=== PATIENT | male | born 1965 | race African-American/Black ===

== ENCOUNTER 2017-01-17 17:25 | Inpatient (IN) | payer OTHER ==
[~2017-01-17] VITALS: Ht 193 cm; Wt 95.8 kg
[~2017-01-17 17:25] MED LIST: ALDACTONE12.5 MG PO; ALDACTONE50 MG PO; ALER-CAP25 M1 PO; AMBIEN10 MG PO; AMLODIPINE; AMLODIPINE BESY10 MG PO; ANALGESIC325 MG PO; ASACOL HD800 MG PO; ASACOL400 MG PO; ASCORBIC ACID500 M3 PO; AUGMENTIN875 MG PO; AVENTYL,PAMELOR25 MG PO; Aldactone PO; Ativan PO; BENICAR20 MG PO; BENTYL10 MG PO; BENTYL20 MG PO; CLEOCIN300 MG PO; CLOZAPINE200 MG PO; COLCHICINE,COL0.6 MG PO; CYCLOBENZAPRINE10 MG PO; DAILY VALUE1 EACH PO; DELTASONE20 M1 PO; DIAZEPAM10 MG PO; DICLOFENAC SODI75 MG PO; DICYCLOMINE HCL MC; DICYCLOMINE HCL10 MG PO; DILAUDID2 MG PO; DILAUDID4 MG PO; DURAGESIC100 MCG TD; EFFEXOR XR150 MG PO; EFFEXOR37.5 MG PO; FERROUS SULFAT325 MG PO; FLEXERIL; FLEXERIL10 MG PO; FLEXERIL5 MG PO; GABAPENTIN300 MG PO; GABAPENTIN400 MG PO; HABITROL,NICODE21 MG TD; HYDROMORPHONE HC4 MG PO; HYDROXYZINE HCL10 MG PO; INDOMETHACIN50 MG PO; IRON325 MG PO; KEFLEX500 MG PO; KEPPRA250 MG PO; Kenalog,Aristocort 0 TP; LYRICA100 MG; LYRICA100 MG PO; LYRICA150 MG PO; LYRICA200 MG PO; LYRICA50 MG PO; LYRICA75 MG PO; MELOXICAM15 MG PO; METHADONE10 MG PO; MORPHINE SULFAT15 M1; MORPHINE SULFAT15 MG PO; MORPHINE SULFAT60 MG; MORPHINE SULFAT60 MG PO; MOTRIN400 MG PO; MS CONTIN,ORAMO60 MG PO; NAPROXEN500 MG PO; NEURONTIN300 MG PO; NICODERM CQ1 EAC2 TD; NICOTINE PATCH1 EAC2 TD; NORVASC10 MG PO; NORVASC5 MG PO; OMEPRAZOLE20 M1 PO; OMEPRAZOLE20 MG PO; OXAYDO5 MG PO; OXYCONTIN20 MG PO; OXYCONTIN30 MG PO; PAMELOR; PERCOCET 5/31 TABLET PO; PRILOSEC20 MG PO; PRILOSEC40 MG PO; PROTONIX40 MG PO; ROBAXIN500 MG PO; SENOKOT S,PE1 TABLET PO; SEROQUEL100 MG PO; SEROQUEL50 MG PO; SKELAXIN800 MG PO; SUBOXONE 12 MG1 EACH SL; TRAMADOL HCL50 MG PO; Tylenol Regular Stre PO; ULTRAM50 MG PO; VALIUM10 MG PO; VENLAFAXINE HC150 M1 PO; VICODIN,LORT1 TABLET PO; VOLTAREN75 MG PO; Vicodin,Lortab 5/500 PO; ZANAFLEX2 M1 PO; ZANAFLEX2 MG PO; ZOLPIDEM TARTRA10 MG PO; ZYVOX600 MG PO
[2017-01-17 19:32] LABS: EOSINOPHIL (%) 0.9 % (0-5); EOSINOPHIL COUNT 0.1 K/uL (0-0.3); HEMATOCRIT 37.3 % (38.0-50.0); IMMATURE GRANULOCYTE (%) 0.1 % (0.0-0.7); INSTRUMENT ABS NEUTROPHIL CT 3.2 K/uL; LYMPHOCYTE COUNT 2.9 K/uL (1.0-2.8); MCH 26.8 PG (29.0-34.0); MCV 81.3 FL (86-99); MONOCYTE (%) 8.4 % (3-12); MONOCYTE COUNT 0.6 K/uL (0-0.8); NEUTROPHIL (%) 47.2 % (45-76); NEUTROPHIL COUNT 3.2 K/uL (1.8-6.4); PLATELET COUNT 134 K/uL (156-360); RBC DIS.WIDTH-CV 17.4 % (11.8-14.6); RBC DIS.WIDTH-SD 50.4 % (39-53); RED BLOOD COUNT 4.59 M/uL (4.00-5.50); WHITE BLOOD COUNT 6.8 K/uL (4.1-10.2)
[2017-01-17 19:40] LABS: CHLORIDE 112 mEq/L (99-109); POTASSIUM 3.6 mEq/L (3.7-5.4); SODIUM 141 mEq/L (136-147)
[2017-01-17 19:42] LABS: GLUCOSE 81 mg/dL (70-99)
[2017-01-17 19:43] LABS: ANION GAP 7 MEQ/L (2-14)
[2017-01-17 19:45] LABS: GFR ESTIMATE (CALCULATED) > 59 mL/min/; SERUM ETHYL ALCOHOL 162 mg/dL
[2017-01-17 19:46] LABS: UREA NITROGEN (BUN) 7 mg/dL (9-23)
[2017-01-17] MEDS ORDERED: LYRICA100 MG PO (20:41)
[2017-01-17] MEDS ORDERED: SEROQUEL100 MG PO (20:42)
[2017-01-17] MEDS ORDERED: MAGNESIUM400 M1 PO (20:43)
[2017-01-17] MEDS ORDERED: SEROQUEL50 MG PO (20:43)
[2017-01-17] MEDS ORDERED: OXAYDO5 MG PO (20:44)
[2017-01-17] MEDS ORDERED: DELTASONE20 M1 PO (20:44)
[2017-01-17] MEDS ORDERED: ERGOCALCIF50000 UNIT PO (20:45)
[2017-01-17] MEDS ORDERED: OMEPRAZOLE20 MG PO (20:45)
[2017-01-17] MEDS ORDERED: TRAZODONE HCL50 MG PO (20:46)
[2017-01-17] MEDS ORDERED: LIDODERM 5% P1 PATCH TD (20:46)
[2017-01-17 21:08] VITALS: BP 159/91
[2017-01-17 23:49] VITALS: BP 118/61
[2017-01-18 03:50] VITALS: BP 136/85
[2017-01-18 08:13] VITALS: BP 138/83
[2017-01-18 08:48] LABS: METH RESISTANT S AUREUS PCR POSITIVE (NEGATIVE)
[2017-01-18 08:51] LABS: PROBE CHECK PASS
[2017-01-18 16:13] VITALS: BP 154/88
[2017-01-18 20:14] VITALS: BP 155/86
[2017-01-19] VITALS (7 sets, daily range): BP systolic 128–150; BP diastolic 60–92
[2017-01-19 08:07] LABS: EOSINOPHIL (%) 2.3 % (0-5); EOSINOPHIL COUNT 0.1 K/uL (0-0.3); HEMATOCRIT 32.5 % (38.0-50.0); IMMATURE GRANULOCYTE (%) 0.2 % (0.0-0.7); INSTRUMENT ABS NEUTROPHIL CT 1.9 K/uL; LYMPHOCYTE COUNT 2.5 K/uL (1.0-2.8); MCHC 32.6 G/DL (30.0-36.0); MCV 82.7 FL (86-99); MONOCYTE (%) 12.8 % (3-12); MONOCYTE COUNT 0.7 K/uL (0-0.8); NEUTROPHIL (%) 36.8 % (45-76); NEUTROPHIL COUNT 1.9 K/uL (1.8-6.4); RBC DIS.WIDTH-CV 17.3 % (11.8-14.6); RBC DIS.WIDTH-SD 52.9 % (39-53); RED BLOOD COUNT 3.93 M/uL (4.00-5.50); WHITE BLOOD COUNT 5.2 K/uL (4.1-10.2)
[2017-01-19 08:21] LABS: ANION GAP 5 MEQ/L (2-14); CHLORIDE 109 MEQ/L (99-109); GFR ESTIMATE (CALCULATED) > 59 mL/min/; GLUCOSE 88 mg/dL (70-99); POTASSIUM 4.3 MEQ/L (3.7-5.4); SAMPLE HEMOLYSIS CHECK 0; SAMPLE ICTERIC CHECK 0; SAMPLE LIPEMIA CHECK 0; SODIUM 138 MEQ/L (136-147); UREA NITROGEN (BUN) 11 mg/dL (9-23)
[2017-01-19 09:32] LABS: PLAT.SUFFICIENCY DECREASED; PLATELET COUNT 98 K/uL (156-360)
[2017-01-20] VITALS (19 sets, daily range): BP systolic 85–168; BP diastolic 65–99
[2017-01-20 05:40] LABS: ANION GAP 5 MEQ/L (2-14); CHLORIDE 106 MEQ/L (99-109); GFR ESTIMATE (CALCULATED) > 59 mL/min/; GLUCOSE 91 mg/dL (70-99); POTASSIUM 4.2 MEQ/L (3.7-5.4); SAMPLE HEMOLYSIS CHECK 0; SAMPLE ICTERIC CHECK 0; SAMPLE LIPEMIA CHECK 0; SODIUM 137 MEQ/L (136-147); UREA NITROGEN (BUN) 14 mg/dL (9-23)
[2017-01-20 06:55] LABS: EOSINOPHIL (%) 2.4 % (0-5); EOSINOPHIL COUNT 0.1 K/uL (0-0.3); HEMATOCRIT 30.5 % (38.0-50.0); IMMATURE GRANULOCYTE (%) 0.4 % (0.0-0.7); INSTRUMENT ABS NEUTROPHIL CT 2.3 K/uL; LYMPHOCYTE COUNT 2.2 K/uL (1.0-2.8); MCH 26.8 PG (29.0-34.0); MCHC 32.5 G/DL (30.0-36.0); MCV 82.4 FL (86-99); MONOCYTE (%) 13.6 % (3-12); MONOCYTE COUNT 0.7 K/uL (0-0.8); NEUTROPHIL (%) 42.9 % (45-76); NEUTROPHIL COUNT 2.3 K/uL (1.8-6.4); PLATELET COUNT 96 K/uL (156-360); RBC DIS.WIDTH-CV 17.2 % (11.8-14.6); RBC DIS.WIDTH-SD 51.2 % (39-53); WHITE BLOOD COUNT 5.4 K/uL (4.1-10.2)
[2017-01-21] VITALS (14 sets, daily range): BP systolic 115–174; BP diastolic 56–96
[2017-01-22 04:04] VITALS: BP 134/86
[2017-01-22 06:48] LABS: ANION GAP 7 MEQ/L (2-14); CHLORIDE 102 MEQ/L (99-109); GFR ESTIMATE (CALCULATED) > 59 mL/min/; GLUCOSE 100 mg/dL (70-99); POTASSIUM 4.1 MEQ/L (3.7-5.4); SAMPLE HEMOLYSIS CHECK 0; SAMPLE ICTERIC CHECK 0; SAMPLE LIPEMIA CHECK 0; SODIUM 136 MEQ/L (136-147); UREA NITROGEN (BUN) 12 mg/dL (9-23)
[2017-01-22 07:00] LABS: EOSINOPHIL (%) 0.8 % (0-5); EOSINOPHIL COUNT 0.1 K/uL (0-0.3); IMMATURE GRANULOCYTE (%) 0.4 % (0.0-0.7); IMMATURE GRANULOCYTE COUNT 0.1 K/uL; LYMPHOCYTE COUNT 3.2 K/uL (1.0-2.8); MCH 27.1 PG (29.0-34.0); MCHC 32.8 G/DL (30.0-36.0); MCV 82.5 FL (86-99); MONOCYTE (%) 12.5 % (3-12); MONOCYTE COUNT 1.5 K/uL (0-0.8); NEUTROPHIL (%) 59.1 % (45-76); RBC DIS.WIDTH-CV 17.7 % (11.8-14.6); RBC DIS.WIDTH-SD 51.8 % (39-53); RED BLOOD COUNT 3.88 M/uL (4.00-5.50)
[2017-01-22 07:14] LABS: WHITE BLOOD COUNT 11.9 K/uL (4.1-10.2)
[2017-01-22 07:53] VITALS: BP 159/88
[2017-01-22 08:04] LABS: PLAT.SUFFICIENCY DECREASED; PLATELET COUNT 96 K/uL (156-360)
[2017-01-22 11:19] VITALS: BP 143/85
[2017-01-22 14:48] VITALS: BP 146/84
[2017-01-22 20:00] VITALS: BP 158/88
[2017-01-23] VITALS (7 sets, daily range): BP systolic 119–152; BP diastolic 71–83
[2017-01-23 06:13] LABS: ANION GAP 7 MEQ/L (2-14); CHLORIDE 99 MEQ/L (99-109); GFR ESTIMATE (CALCULATED) > 59 mL/min/; GLUCOSE 143 mg/dL (70-99); POTASSIUM 4.2 MEQ/L (3.7-5.4); SAMPLE HEMOLYSIS CHECK 0; SAMPLE ICTERIC CHECK 0; SAMPLE LIPEMIA CHECK 0; SODIUM 132 MEQ/L (136-147); UREA NITROGEN (BUN) 11 mg/dL (9-23)
[2017-01-23 06:26] LABS: VANCOMYCIN, TROUGH 21.1 MCG/ML (10-20)
[2017-01-23 06:36] LABS: EOSINOPHIL (%) 1.6 % (0-5); EOSINOPHIL COUNT 0.2 K/uL (0-0.3); HEMATOCRIT 31.2 % (38.0-50.0); IMMATURE GRANULOCYTE (%) 0.4 % (0.0-0.7); INSTRUMENT ABS NEUTROPHIL CT 5.2 K/uL; LYMPHOCYTE COUNT 3.2 K/uL (1.0-2.8); MCH 26.9 PG (29.0-34.0); MCHC 32.4 G/DL (30.0-36.0); MONOCYTE (%) 14.8 % (3-12); MONOCYTE COUNT 1.5 K/uL (0-0.8); NEUTROPHIL (%) 51.1 % (45-76); NEUTROPHIL COUNT 5.2 K/uL (1.8-6.4); PLATELET COUNT 97 K/uL (156-360); RBC DIS.WIDTH-CV 17.3 % (11.8-14.6); RBC DIS.WIDTH-SD 52.5 % (39-53); RED BLOOD COUNT 3.76 M/uL (4.00-5.50); WHITE BLOOD COUNT 10.1 K/uL (4.1-10.2)
[2017-01-24 03:35] VITALS: BP 122/78
[2017-01-24 08:23] VITALS: BP 140/78
[2017-01-24 11:11] VITALS: BP 134/77
[2017-01-24 15:59] VITALS: BP 137/86
[2017-01-24 19:20] VITALS: BP 136/84
[2017-01-24 23:19] VITALS: BP 135/71
[2017-01-25 03:51] VITALS: BP 144/76
[2017-01-25 05:53] LABS: ANION GAP 7 MEQ/L (2-14); CHLORIDE 100 MEQ/L (99-109); GFR ESTIMATE (CALCULATED) > 59 mL/min/; GLUCOSE 111 mg/dL (70-99); POTASSIUM 4.3 MEQ/L (3.7-5.4); SAMPLE HEMOLYSIS CHECK 0; SAMPLE ICTERIC CHECK 0; SAMPLE LIPEMIA CHECK 0; SODIUM 134 MEQ/L (136-147); UREA NITROGEN (BUN) 10 mg/dL (9-23)
[2017-01-25 06:29] LABS: EOSINOPHIL (%) 2.8 % (0-5); EOSINOPHIL COUNT 0.2 K/uL (0-0.3); HEMATOCRIT 33.9 % (38.0-50.0); IMMATURE GRANULOCYTE (%) 0.7 % (0.0-0.7); IMMATURE GRANULOCYTE COUNT 0.1 K/uL; INSTRUMENT ABS NEUTROPHIL CT 3.4 K/uL; LYMPHOCYTE COUNT 2.4 K/uL (1.0-2.8); MCH 26.7 PG (29.0-34.0); MCHC 32.2 G/DL (30.0-36.0); MCV 83.1 FL (86-99); MONOCYTE (%) 20.1 % (3-12); MONOCYTE COUNT 1.5 K/uL (0-0.8); NEUTROPHIL (%) 45.3 % (45-76); NEUTROPHIL COUNT 3.4 K/uL (1.8-6.4); PLATELET COUNT 121 K/uL (156-360); RBC DIS.WIDTH-CV 17.1 % (11.8-14.6); RBC DIS.WIDTH-SD 51.5 % (39-53); RED BLOOD COUNT 4.08 M/uL (4.00-5.50); WHITE BLOOD COUNT 7.6 K/uL (4.1-10.2)
[2017-01-25 07:50] VITALS: BP 131/84
[2017-01-25 11:40] VITALS: BP 136/81
[2017-01-25] MEDS ORDERED: APRESOLINE25 MG PO (12:45)
[2017-01-25] MEDS ORDERED: DUONEB 2.5-0.5 M3 ML AEROSOL (12:45)
[2017-01-25] MEDS ORDERED: ROCEPHIN1 GM/50 ML IV (12:47)
[2017-01-25] MEDS ORDERED: VANCOMYCIN1.25 GM/25 IV (12:48)
[2017-01-25] MEDS ORDERED: LYRICA100 MG PO ×2 (12:49)
[2017-01-25] MEDS ORDERED: OXYCODONE HCL5 MG PO (12:49)
[2017-01-25 15:03] VITALS: BP 137/86
== END 2017-01-25 16:28 | DRG 23 ==
LOC: EME 17:25 → EDOF 19:44 → 4WEST 19:44 → 3EAST 19:44 → 4WEST 01-20 11:28 → 3EAST 01-21 15:26
PROVIDERS: Emergency Medicine; Family Medicine; Internal Medicine Pulmonary Disease
DX: G06.0 Intracranial abscess and granuloma (principal); G93.6 Cerebral edema; I38 Endocarditis, valve unspecified; K50.90 Crohn's disease, unspecified, without complications; S00.211A Abrasion of right eyelid and periocular area, initial encounter; V00.811A Fall from moving wheelchair (powered), initial encounter; E78.5 Hyperlipidemia, unspecified; I10 Essential (primary) hypertension; G89.29 Other chronic pain; K21.9 Gastro-esophageal reflux disease without esophagitis; S00.81XA Abrasion of other part of head, initial encounter; F10.129 Alcohol abuse with intoxication, unspecified; G40.909 Epilepsy, unspecified, not intractable, without status epilepticus; F17.200 Nicotine dependence, unspecified, uncomplicated; B95.62 Methicillin resistant Staphylococcus aureus infection as the cause of diseases classified elsewhere; M19.90 Unspecified osteoarthritis, unspecified site; B19.20 Unspecified viral hepatitis C without hepatic coma; F31.9 Bipolar disorder, unspecified; D69.6 Thrombocytopenia, unspecified; M54.9 Dorsalgia, unspecified; G62.9 Polyneuropathy, unspecified; R51 Headache; Y92.9 Unspecified place or not applicable; Y99.9 Unspecified external cause status
CPT/HCPCS: 70450; 70553; 72125; 76937; 80048; 80202; 82565; 82948; 85025; 87040; 87070; 87075; 87102; 87205; 87641; 88305; 88312; 88331; 99202; 99281; 99284; C1713; G0480; J0131; J0690; J0696; J1100; J1170; J2270; J2405; J2710; J3010; J3370; J7050

== ENCOUNTER 2017-06-10 23:37 | Emergency (ER) | payer OTHER ==
[~2017-06-10] VITALS: Ht 193 cm; Wt 91.6 kg
[~2017-06-10 23:37] MED LIST changes: +APRESOLINE25 MG PO; +DUONEB 2.5-0.5 M3 ML AEROSOL; +ERGOCALCIF50000 UNIT PO; +LIDODERM 5% P1 PATCH TD; +MAGNESIUM400 M1 PO; +OXYCODONE HCL5 MG PO; +ROCEPHIN1 GM/50 ML IV; +TRAZODONE HCL50 MG PO; +VANCOMYCIN1.25 GM/25 IV
[2017-06-11 02:13] VITALS: BP 122/78
== END 2017-06-11 02:14 | disposition home or self-care (01) ==
LOC: EME → EDBD 23:37 → EME 06-11 02:14
DX: S09.8XXA Other specified injuries of head, initial encounter (principal); S00.81XA Abrasion of other part of head, initial encounter; S60.511A Abrasion of right hand, initial encounter; M25.511 Pain in right shoulder; W19.XXXA Unspecified fall, initial encounter; Z86.73 Personal history of transient ischemic attack (TIA), and cerebral infarction without residual deficits; F17.200 Nicotine dependence, unspecified, uncomplicated
CPT/HCPCS: 70450; 99281; 99283

== ENCOUNTER 2017-11-05 14:26 | Emergency (ER) | payer OTHER ==
[~2017-11-05] VITALS: Ht 190.5 cm; Wt 92.9 kg
[2017-11-05 15:45] LABS: HEMATOCRIT 46.6 % (38.0-50.0); HEMOGLOBIN 15.7 G/DL (12.5-16.6); MCH 29.5 PG (29.0-34.0); MCHC 33.7 G/DL (30.0-36.0); MCV 87.4 FL (86-99); RBC DIS.WIDTH-CV 14.3 % (11.8-14.6); RBC DIS.WIDTH-SD 45.7 % (39-53); RED BLOOD COUNT 5.33 M/uL (4.00-5.50); TROP-I INTERPRETATION NEGATIVE; TROPONIN-I 0.05 ng/mL (0.0-0.30); WHITE BLOOD COUNT 7.6 K/uL (4.1-10.2)
[2017-11-05 15:56] LABS: ALBUMIN 3.4 g/dL (3.2-4.8); CHLORIDE 108 mEq/L (99-109); SODIUM 139 mEq/L (136-147)
[2017-11-05 15:58] LABS: GLUCOSE 123 mg/dL (70-99)
[2017-11-05 15:59] LABS: TOTAL PROTEIN 7.3 g/dL (6.4-8.3)
[2017-11-05 16:00] LABS: TOTAL BILIRUBIN 0.9 mg/dL (0.0-1.0)
[2017-11-05 16:01] LABS: SERUM ETHYL ALCOHOL < 10 mg/dL
[2017-11-05 16:02] LABS: CREATININE 0.8 mg/dL (0.6-1.3); GFR ESTIMATE (CALCULATED) > 59 mL/min/ (58.99-99999)
[2017-11-05 16:03] LABS: ALKALINE PHOSPHATASE 204 IU/L (3-129)
[2017-11-05 16:04] LABS: AST (GOT) 88 IU/L (2-34); UREA NITROGEN (BUN) 7 mg/dL (9-23)
[2017-11-05 16:05] LABS: SALICYLATE < 5.0 MG/DL (15-30)
[2017-11-05 16:06] LABS: ACETAMINOPHEN (TYLENOL) < 10 mcg/mL (10-30); ALT (GPT) 69 IU/L (3-49)
[2017-11-05 16:07] LABS: CREATINE KINASE 364 IU/L (1-294); LIPASE 23 U/L (1.0-51.0)
[2017-11-05 16:41] LABS: PLAT.SUFFICIENCY DECREASED; PLATELET COUNT 73 K/uL (156-360)
[2017-11-05 17:20] LABS: APPEARANCE CLEAR ((CLEAR)); BILIRUBIN NEGATIVE; BLOOD NEGATIVE; COLOR YELLOW ((YELLOW)); GLUCOSE (STRIP) NEGATIVE; KETONES NEGATIVE; LEUKOCYTES NEGATIVE; NITRITE NEGATIVE; PROTEIN (STRIP) NEGATIVE; SPECIFIC GRAVITY 1.019 (1.000-1.030); UCUL ADDED? NO
[2017-11-05 17:45] LABS: AMPHETAMINE NEGATIVE (500 ng/mL); BARBITURATES NEGATIVE (200 ng/mL); BENZODIAZEPINES NEGATIVE (150 ng/mL); BUPRENORPHINE NEGATIVE (10 ng/mL); COCAINE NEGATIVE (150 ng/mL); METHADONE NEGATIVE (200 ng/mL); METHAMPHETAMINE NEGATIVE (500 ng/mL); OPIATES (MORPHINE) NEGATIVE (100 ng/mL); OXYCODONE PRESUMPTIVE POSITIVE (100 ng/mL); PHENCYCLIDINE NEGATIVE (25 ng/mL); PROPOXYPHENE NEGATIVE (300 ng/mL); THC CANNABINOIDS PRESUMPTIVE POSITIVE (50 ng/mL); TRICYCLIC ANTIDEPRESSANTS PRESUMPTIVE POSITIVE (300 ng/mL)
[2017-11-05] MEDS ORDERED: MEDROL DOSEPAK4 MG PO (19:02)
[2017-11-05 19:18] VITALS: BP 167/104
== END 2017-11-05 19:19 | disposition home or self-care (01) ==
LOC: EME 14:26
PROVIDERS: Emergency Medicine
DX: R53.1 Weakness (principal); R41.82 Altered mental status, unspecified; M25.50 Pain in unspecified joint; Z86.73 Personal history of transient ischemic attack (TIA), and cerebral infarction without residual deficits; G89.29 Other chronic pain; E78.5 Hyperlipidemia, unspecified; K50.90 Crohn's disease, unspecified, without complications; I10 Essential (primary) hypertension; B19.20 Unspecified viral hepatitis C without hepatic coma; R56.9 Unspecified convulsions; F32.9 Major depressive disorder, single episode, unspecified; M10.9 Gout, unspecified; F17.200 Nicotine dependence, unspecified, uncomplicated; K21.9 Gastro-esophageal reflux disease without esophagitis; Z86.718 Personal history of other venous thrombosis and embolism; Z96.641 Presence of right artificial hip joint
CPT/HCPCS: 70450; 71046; 72125; 80053; 81003; 82550; 83690; 84484; 84999; 85027; 93005; 99281; 99284; G0480; J7030

== ENCOUNTER 2018-03-01 11:36 | Emergency (ER) | payer OTHER ==
[~2018-03-01] VITALS: Ht 190.5 cm; Wt 97.7 kg
[~2018-03-01 11:36] MED LIST changes: +MEDROL DOSEPAK4 MG PO
[2018-03-01 12:31] LABS: HEMATOCRIT 39.8 % (38.0-50.0); HEMOGLOBIN 13.7 G/DL (12.5-16.6); MCHC 34.4 G/DL (30.0-36.0); MCV 87.3 FL (86-99); PLATELET COUNT 120 K/uL (156-360); RBC DIS.WIDTH-CV 13.1 % (11.8-14.6); RBC DIS.WIDTH-SD 42.2 % (39-53); RED BLOOD COUNT 4.56 M/uL (4.00-5.50); WHITE BLOOD COUNT 5.8 K/uL (4.1-10.2)
[2018-03-01 12:41] LABS: CHLORIDE 108 mEq/L (99-109); POTASSIUM 4.2 mEq/L (3.7-5.4); SODIUM 140 mEq/L (136-147)
[2018-03-01 12:43] LABS: GLUCOSE 95 mg/dL (70-99)
[2018-03-01 12:44] LABS: TOTAL PROTEIN 6.5 g/dL (6.4-8.3)
[2018-03-01 12:45] LABS: TOTAL BILIRUBIN 0.8 mg/dL (0.0-1.0)
[2018-03-01 12:47] LABS: ALKALINE PHOSPHATASE 178 IU/L (3-129); CREATININE 0.8 mg/dL (0.6-1.3); GFR ESTIMATE (CALCULATED) > 59 mL/min/ (58.99-99999)
[2018-03-01 12:48] LABS: UREA NITROGEN (BUN) 8 mg/dL (9-23)
[2018-03-01 12:49] LABS: AST (GOT) 92 IU/L (2-34); DIRECT BILIRUBIN 0.5 mg/dL (0.0-0.3)
[2018-03-01 12:50] LABS: ALT (GPT) 53 IU/L (3-49)
[2018-03-01 12:51] LABS: LIPASE 19 U/L (1.0-51.0)
[2018-03-01 13:07] LABS: APPEARANCE CLEAR ((CLEAR)); BILIRUBIN NEGATIVE; BLOOD NEGATIVE; COLOR YELLOW ((YELLOW)); GLUCOSE (STRIP) NEGATIVE; KETONES NEGATIVE; LEUKOCYTES NEGATIVE; NITRITE NEGATIVE; PROTEIN (STRIP) NEGATIVE; SPECIFIC GRAVITY 1.023 (1.000-1.030)
[2018-03-01 13:32] VITALS: BP 144/94
== END 2018-03-01 14:02 | disposition home or self-care (01) ==
LOC: EME 11:36
PROVIDERS: Emergency Medicine
DX: K29.00 Acute gastritis without bleeding (principal); K76.0 Fatty (change of) liver, not elsewhere classified; N20.0 Calculus of kidney; K40.90 Unilateral inguinal hernia, without obstruction or gangrene, not specified as recurrent; K42.9 Umbilical hernia without obstruction or gangrene; Z90.49 Acquired absence of other specified parts of digestive tract; Z87.442 Personal history of urinary calculi; Z86.73 Personal history of transient ischemic attack (TIA), and cerebral infarction without residual deficits; Z86.718 Personal history of other venous thrombosis and embolism; F17.200 Nicotine dependence, unspecified, uncomplicated
CPT/HCPCS: 74176; 80048; 80076; 81003; 83690; 85027; 87086; 99281; 99284

== ENCOUNTER 2018-04-17 08:11 | Inpatient (IN) | payer OTHER ==
[~2018-04-17] VITALS: Ht 190.5 cm; Wt 85.5 kg
[2018-04-17 10:37] LABS: HEMATOCRIT 46.7 % (38.0-50.0); HEMOGLOBIN 16.1 G/DL (12.5-16.6); MCH 29.2 PG (29.0-34.0); MCHC 34.5 G/DL (30.0-36.0); MCV 84.6 FL (86-99); PLATELET COUNT 118 K/uL (156-360); RBC DIS.WIDTH-SD 40.1 % (39-53); RED BLOOD COUNT 5.52 M/uL (4.00-5.50); WHITE BLOOD COUNT 6.6 K/uL (4.1-10.2)
[2018-04-17 10:40] LABS: ALBUMIN 3.3 g/dL (3.2-4.8); CHLORIDE 101 mEq/L (99-109); POTASSIUM 4.2 mEq/L (3.7-5.4); SODIUM 136 mEq/L (136-147)
[2018-04-17 10:42] LABS: GLUCOSE 110 mg/dL (70-99)
[2018-04-17 10:43] LABS: TOTAL PROTEIN 7.8 g/dL (6.4-8.3)
[2018-04-17 10:44] LABS: TOTAL BILIRUBIN 1.7 mg/dL (0.0-1.0)
[2018-04-17 10:45] LABS: SERUM ETHYL ALCOHOL < 10 mg/dL
[2018-04-17 10:46] LABS: ALKALINE PHOSPHATASE 220 IU/L (3-129); CREATININE 0.8 mg/dL (0.6-1.3); GFR ESTIMATE (CALCULATED) > 59 mL/min/ (58.99-99999)
[2018-04-17 10:47] LABS: UREA NITROGEN (BUN) 12 mg/dL (9-23)
[2018-04-17 10:48] LABS: AST (GOT) 119 IU/L (2-34)
[2018-04-17 10:49] LABS: ALT (GPT) 38 IU/L (3-49)
[2018-04-17 16:12] LABS: APPEARANCE CLEAR ((CLEAR)); BILIRUBIN MODERATE; BLOOD NEGATIVE; COLOR AMBER ((YELLOW)); GLUCOSE (STRIP) NEGATIVE; KETONES NEGATIVE; LEUKOCYTES NEGATIVE; NITRITE NEGATIVE; PROTEIN (STRIP) NEGATIVE; SPECIFIC GRAVITY 1.026 (1.000-1.030)
[2018-04-17 16:13] LABS: ICTOTEST ND
[2018-04-17 16:29] LABS: AMPHETAMINE NEGATIVE (500 ng/mL); BARBITURATES NEGATIVE (200 ng/mL); BENZODIAZEPINES NEGATIVE (150 ng/mL); BUPRENORPHINE NEGATIVE (10 ng/mL); COCAINE NEGATIVE (150 ng/mL); METHADONE NEGATIVE (200 ng/mL); METHAMPHETAMINE NEGATIVE (500 ng/mL); OPIATES (MORPHINE) NEGATIVE (100 ng/mL); OXYCODONE NEGATIVE (100 ng/mL); PHENCYCLIDINE NEGATIVE (25 ng/mL); PROPOXYPHENE NEGATIVE (300 ng/mL); THC CANNABINOIDS NEGATIVE (50 ng/mL); TRICYCLIC ANTIDEPRESSANTS NEGATIVE (300 ng/mL)
[2018-04-18] MEDS ORDERED: SEROQUEL300 MG PO (13:12)
[2018-04-18 13:23] VITALS: BP 142/80
[2018-04-18 13:26] VITALS: BP 142/80
[2018-04-19 07:53] VITALS: BP 119/66
[2018-04-19 16:01] VITALS: BP 116/62
[2018-04-20 07:57] VITALS: BP 121/84
[2018-04-20 16:04] VITALS: BP 123/70
[2018-04-21 08:14] VITALS: BP 119/80
[2018-04-21 16:52] VITALS: BP 145/82
[2018-04-22 07:37] VITALS: BP 119/79
[2018-04-22 16:19] VITALS: BP 161/94
[2018-04-22 18:19] VITALS: BP 151/85
[2018-04-22 20:37] VITALS: BP 140/74
[2018-04-23 07:41] VITALS: BP 147/88
[2018-04-23 15:16] VITALS: BP 144/77
[2018-04-24 07:44] VITALS: BP 153/89
[2018-04-24 15:06] VITALS: BP 137/83
[2018-04-25 07:43] VITALS: BP 150/90
[2018-04-25 10:24] VITALS: BP 133/72
[2018-04-25 16:41] VITALS: BP 163/89
[2018-04-26 07:37] VITALS: BP 114/80
[2018-04-26 16:10] VITALS: BP 138/86
[2018-04-27 07:51] VITALS: BP 124/82
[2018-04-27 15:18] VITALS: BP 122/73
[2018-04-28 07:46] VITALS: BP 136/82
[2018-04-28 15:52] VITALS: BP 135/79
[2018-04-29 07:43] VITALS: BP 132/74
[2018-04-29 14:42] VITALS: BP 159/87
[2018-04-30 09:00] VITALS: BP 165/94
[2018-04-30 15:16] VITALS: BP 132/76
[2018-05-01 09:00] VITALS: BP 151/89
[2018-05-01 15:22] VITALS: BP 146/74
[2018-05-02 07:57] VITALS: BP 143/88
[2018-05-02] MEDS ORDERED: TRAZODONE HCL100 MG PO (10:16)
[2018-05-02] MEDS ORDERED: EFFEXOR XR150 MG PO (10:16)
== END 2018-05-02 15:36 | disposition home or self-care (01) | DRG 882 ==
LOC: EME 08:11 → 1WEST 04-18 12:08 → EDOF 04-18 12:08 → ENRESERV 04-18 13:19 → 1WEST 04-18 13:20
PROVIDERS: Emergency Medicine
DX: F43.22 Adjustment disorder with anxiety (principal); Z76.5 Malingerer [conscious simulation]; Z59.0 Homelessness; W08.XXXA Fall from other furniture, initial encounter; Z99.3 Dependence on wheelchair; I10 Essential (primary) hypertension; G89.29 Other chronic pain; R45.851 Suicidal ideations; Z87.442 Personal history of urinary calculi; F31.9 Bipolar disorder, unspecified; K21.9 Gastro-esophageal reflux disease without esophagitis; G40.909 Epilepsy, unspecified, not intractable, without status epilepticus; K50.90 Crohn's disease, unspecified, without complications; B19.20 Unspecified viral hepatitis C without hepatic coma; M10.9 Gout, unspecified; F17.200 Nicotine dependence, unspecified, uncomplicated; E78.5 Hyperlipidemia, unspecified; S40.011A Contusion of right shoulder, initial encounter; S70.01XA Contusion of right hip, initial encounter; Z96.641 Presence of right artificial hip joint; Z86.73 Personal history of transient ischemic attack (TIA), and cerebral infarction without residual deficits; F19.90 Other psychoactive substance use, unspecified, uncomplicated
CPT/HCPCS: 73030; 73502; 80053; 81003; 85027; 90839; 97150 GO; 97165 GO; 97530 GO; 97530 GP; 99281; 99285; G0480; Q0177

== ENCOUNTER 2018-05-06 03:51 | Emergency (ER) | payer OTHER ==
[~2018-05-06] VITALS: Ht 190.5 cm; Wt 84.9 kg
[~2018-05-06 03:51] MED LIST changes: +SEROQUEL300 MG PO; +TRAZODONE HCL100 MG PO
[2018-05-06] MEDS ORDERED: ULTRAM50 MG PO (05:35)
[2018-05-06 06:47] VITALS: BP 136/92
== END 2018-05-06 06:48 | disposition home or self-care (01) ==
LOC: EME 03:51
DX: S86.912A Strain of unspecified muscle(s) and tendon(s) at lower leg level, left leg, initial encounter (principal); X58.XXXA Exposure to other specified factors, initial encounter; Z96.643 Presence of artificial hip joint, bilateral; Z86.73 Personal history of transient ischemic attack (TIA), and cerebral infarction without residual deficits
CPT/HCPCS: 73564; 99281; 99284

== ENCOUNTER 2018-05-10 14:16 | Emergency (ER) | payer OTHER ==
[~2018-05-10] VITALS: Ht 190.5 cm; Wt 85.3 kg
[2018-05-10 15:11] LABS: BASOPHIL (%) 0.2 % (0-1); EOSINOPHIL COUNT 0.1 K/uL (0-0.3); HEMATOCRIT 42.6 % (38.0-50.0); HEMOGLOBIN 14.8 G/DL (12.5-16.6); IMMATURE GRANULOCYTE (%) 0.2 % (0.0-0.7); LYMPHOCYTE (%) 33.1 % (15-42); LYMPHOCYTE COUNT 2.8 K/uL (1.0-2.8); MCH 29.1 PG (29.0-34.0); MCHC 34.7 G/DL (30.0-36.0); MCV 83.9 FL (86-99); MONOCYTE (%) 10.6 % (3-12); MONOCYTE COUNT 0.9 K/uL (0-0.8); NEUTROPHIL (%) 54.9 % (45-76); NEUTROPHIL COUNT 4.6 K/uL (1.8-6.4); PLATELET COUNT 116 K/uL (156-360); RBC DIS.WIDTH-CV 13.9 % (11.8-14.6); RBC DIS.WIDTH-SD 42.7 % (39-53); RED BLOOD COUNT 5.08 M/uL (4.00-5.50); WHITE BLOOD COUNT 8.4 K/uL (4.1-10.2)
[2018-05-10 15:20] LABS: ALBUMIN 3.3 g/dL (3.2-4.8); CHLORIDE 107 mEq/L (99-109); SODIUM 137 mEq/L (136-147)
[2018-05-10 15:22] LABS: GLUCOSE 71 mg/dL (70-99)
[2018-05-10 15:23] LABS: TOTAL PROTEIN 7.3 g/dL (6.4-8.3)
[2018-05-10 15:24] LABS: TOTAL BILIRUBIN 1.6 mg/dL (0.0-1.0)
[2018-05-10 15:26] LABS: ALKALINE PHOSPHATASE 186 IU/L (3-129); GFR ESTIMATE (CALCULATED) > 59 mL/min/ (58.99-99999)
[2018-05-10 15:27] LABS: UREA NITROGEN (BUN) 15 mg/dL (9-23)
[2018-05-10 15:28] LABS: AST (GOT) 125 IU/L (2-34)
[2018-05-10 15:29] LABS: ALT (GPT) 86 IU/L (3-49); LIPASE 41 U/L (1.0-51.0)
[2018-05-10 17:24] LABS: APPEARANCE CLEAR ((CLEAR)); BILIRUBIN NEGATIVE; BLOOD NEGATIVE; COLOR YELLOW ((YELLOW)); GLUCOSE (STRIP) NEGATIVE; KETONES NEGATIVE; LEUKOCYTES NEGATIVE; NITRITE NEGATIVE; PROTEIN (STRIP) NEGATIVE; SPECIFIC GRAVITY 1.056 (1.000-1.030); UCUL ADDED? NO
[2018-05-10 17:45] VITALS: BP 152/94
== END 2018-05-10 18:04 | disposition home or self-care (01) ==
LOC: EME 14:16
PROVIDERS: Emergency Medicine
DX: R10.9 Unspecified abdominal pain (principal); K86.9 Disease of pancreas, unspecified; K21.9 Gastro-esophageal reflux disease without esophagitis; B19.20 Unspecified viral hepatitis C without hepatic coma; F31.9 Bipolar disorder, unspecified; F32.9 Major depressive disorder, single episode, unspecified; Z87.442 Personal history of urinary calculi; Z90.49 Acquired absence of other specified parts of digestive tract; Z86.73 Personal history of transient ischemic attack (TIA), and cerebral infarction without residual deficits; Z88.6 Allergy status to analgesic agent
CPT/HCPCS: 74177; 80053; 81003; 83690; 85025; 99281; 99284; J2270; J7030

== ENCOUNTER 2018-05-14 08:28 | Emergency (ER) | payer OTHER ==
[~2018-05-14] VITALS: Ht 190.5 cm; Wt 97.1 kg
[2018-05-14 09:05] LABS: BASOPHIL (%) 0.2 % (0-1); EOSINOPHIL (%) 1.1 % (0-5); EOSINOPHIL COUNT 0.1 K/uL (0-0.3); HEMATOCRIT 43.1 % (38.0-50.0); HEMOGLOBIN 14.9 G/DL (12.5-16.6); IMMATURE GRANULOCYTE (%) 0.2 % (0.0-0.7); LYMPHOCYTE (%) 26.4 % (15-42); LYMPHOCYTE COUNT 2.2 K/uL (1.0-2.8); MCH 29.1 PG (29.0-34.0); MCHC 34.6 G/DL (30.0-36.0); MCV 84.2 FL (86-99); MONOCYTE (%) 9.3 % (3-12); MONOCYTE COUNT 0.8 K/uL (0-0.8); NEUTROPHIL (%) 62.8 % (45-76); NEUTROPHIL COUNT 5.2 K/uL (1.8-6.4); PLATELET COUNT 108 K/uL (156-360); RBC DIS.WIDTH-CV 13.5 % (11.8-14.6); RBC DIS.WIDTH-SD 42.2 % (39-53); RED BLOOD COUNT 5.12 M/uL (4.00-5.50); WHITE BLOOD COUNT 8.4 K/uL (4.1-10.2)
[2018-05-14 09:08] LABS: APPEARANCE CLEAR ((CLEAR)); BILIRUBIN NEGATIVE; BLOOD NEGATIVE; COLOR YELLOW ((YELLOW)); GLUCOSE (STRIP) NEGATIVE; KETONES NEGATIVE; LEUKOCYTES NEGATIVE; NITRITE NEGATIVE; PROTEIN (STRIP) NEGATIVE; SPECIFIC GRAVITY 1.023 (1.000-1.030); UCUL ADDED? NO
[2018-05-14 09:27] LABS: ALBUMIN 3.5 G/DL (3.2-4.8); ALKALINE PHOSPHATASE 168 IU/L (3-129); ALT (GPT) 78 IU/L (3-49); AST (GOT) 101 IU/L (2-34); CHLORIDE 106 MEQ/L (99-109); CREATININE 0.8 MG/DL (0.6-1.3); GFR ESTIMATE (CALCULATED) > 59 mL/min/ (58.99-99999); GLUCOSE 89 mg/dL (70-99); LIPASE 31 U/L (1.0-51.0); POTASSIUM 4.2 MEQ/L (3.7-5.4); SODIUM 136 MEQ/L (136-147); TOTAL BILIRUBIN 1.3 MG/DL (0.0-1.0); TOTAL PROTEIN 7.3 G/DL (6.4-8.3); UREA NITROGEN (BUN) 14 mg/dL (9-23)
[2018-05-14 12:25] VITALS: BP 204/133
== END 2018-05-14 12:25 | disposition home or self-care (01) ==
LOC: EME 08:28
PROVIDERS: Emergency Medicine
DX: R10.9 Unspecified abdominal pain (principal); K86.9 Disease of pancreas, unspecified; I10 Essential (primary) hypertension; K21.9 Gastro-esophageal reflux disease without esophagitis; B19.20 Unspecified viral hepatitis C without hepatic coma; F31.9 Bipolar disorder, unspecified; F32.9 Major depressive disorder, single episode, unspecified; Z87.442 Personal history of urinary calculi; Z86.73 Personal history of transient ischemic attack (TIA), and cerebral infarction without residual deficits; F17.200 Nicotine dependence, unspecified, uncomplicated; Z90.49 Acquired absence of other specified parts of digestive tract; Z88.6 Allergy status to analgesic agent
CPT/HCPCS: 80053; 81003; 83690; 85025; 99281; 99285; J7030